=== PATIENT | male | born 1970 ===

== ENCOUNTER 2016-12-31 10:14 | Emergency (ER) | payer MEDICAID, SELFPAY ==
[2016-12-31 10:15] VITALS: BMI 26.6
[2016-12-31 10:19] VITALS: PULSE 79; TEMP 97.7
--- NOTE | 2016-12-31 10:30 | C.PDOC ---
History Of Present Illness Violet is presenting with complaining of L arm pain. Patient reports that he slipped on saturday. He went to [facility] [place], got an xray and was given a splint and instructed to follow-up with PMD. Patient reports that he went to his PMD on Saturday night (Dr. Dukes) and was told to follow-up with specialist next week. Patient comes to ED today with his son who is requesting xray because "I don't know if it is broken," Time Seen by Provider: 12/31/16 10:24 Chief Complaint (Nursing): Upper Extremity Problem/Injury Past Medical History Vital Signs: Last Vital Signs Temp 97.7 F 12/31/16 10:18 Pulse 79 12/31/16 10:18 Resp 18 12/31/16 10:18 BP 140/70 12/31/16 10:18 Pulse Ox 100 12/31/16 11:58 - Medical History PMH: No Chronic Diseases Family History: States: No Known Family Hx - Social History Hx Alcohol Use: No Hx Substance Use: No - Immunization History Hx Tetanus Toxoid Vaccination: No Hx Influenza Vaccination: No Hx Pneumococcal Vaccination: No Review Of Systems Constitutional: Negative for: Fever, Chills Cardiovascular: Negative for: Chest Pain Respiratory: Negative for: Cough Gastrointestinal: Negative for: Nausea, Vomiting, Abdominal Pain, Diarrhea, Constipation Musculoskeletal: Positive for: Arm Pain (L arm) Neurological: Negative for: Weakness, Numbness, Headache Physical Exam - Physical Exam Appears: Well, Non-toxic, No Acute Distress Skin: Normal Color, Warm, Dry Head: Atraumatic, Normacephalic Eye(s): bilateral: Normal Inspection, PERRL, EOMI Neck: Normal Back: Normal Inspection Extremity: Other (swelling to L forearm. Tenderness to wrist. Decreased ROM at wrist secondary to pain. Distal pulses intact. Capillary refill <2 seconds. Normal ROM at elbow and shoulder. Normal strength and ROM at fingers) ED Course And Treatment O2 Sat by Pulse Oximetry: 100 Medical Decision Making Medical Decision Making: Xray shows "Nondisplaced intra-articular distal radial fracture." Again spoke with patient and son about wearing splint and following up with seafood specialist recommended by Dr. Dukes Disposition - Disposition Disposition: HOME/ ROUTINE Disposition Time: 10:58 Condition: GOOD Additional Instructions: Follow up with specialist recommended by your PMD Dr. Dukes. Return to ED if condition worsens. Wear splint. Instructions: Arm Fracture in Adults (ED) - Clinical Impression Clinical Impression: Radius fracture
--- NOTE | 2016-12-31 11:50 | RAD ---
PROCEDURE: Left wrist radiographs Left forearm radiographs. HISTORY: L wrist and forearm pain after fall COMPARISON: None available. FINDINGS: BONES: Nondisplaced intra-articular distal radial fracture. JOINTS: No dislocation. SOFT TISSUES: Soft tissue swelling. No evidence of radiopaque foreign body OTHER FINDINGS: None. IMPRESSION: Nondisplaced intra-articular distal radial fracture. Soft tissue swelling.
[2016-12-31 12:17] VITALS: BP 131/85; RESP 16; O2SAT 99
== END 2016-12-31 12:16 | disposition home or self-care (01) ==
LOC: C.ER 10:14
DX: S52.502D Unspecified fracture of the lower end of left radius, subsequent encounter for closed fracture with routine healing (principal); W18.39XD Other fall on same level, subsequent encounter